=== PATIENT | male | born 1970 | race African-American/Black ===

== ENCOUNTER 2019-06-13 10:44 | Inpatient (IN) ==
[2019-06-13] MEDS ORDERED: NS 1,000 ML IV ONE (11:07)
[2019-06-13] MEDS ORDERED: ZOFRAN IV ONE (11:08)
[2019-06-13 11:29] LABS: BILIRUBIN URINE NEGATIVE (NEGATIVE); BLOOD URINE NEGATIVE (NEGATIVE); CLARITY CLEAR (CLEAR); COLOR YELLOW; KETONE URINE 3+(Large) mg/dL (NEGATIVE); LEUKOCYTES URINE NEGATIVE (NEGATIVE); NITRITE URINE NEGATIVE (NEGATIVE); PH URINE 6.5; PROTEIN URINE TRACE mg/dL (NEGATIVE); UROBILINOGEN URINE NORMAL
[2019-06-13 11:29] LABS: BE -17.8 mmoll (-3.0-3.0); BLOOD TYPE ARTERIAL; METHB 0.2 % (0.0-1.5); O2(CT) 18.6 mL/dL (15.0-23.0); O2HB 94.8 % (95.0-99.0); PCO2(98.6) 25 mmHg (35-45); PO2(98.6) 96 mmHg (60-100); SAMPLE BLOOD; SAO2 95.3 % (95.0-100.0); THB 13.9 g/dL (11.5-17.4)
[2019-06-13 11:34] LABS: ALLEN TEST YES; MODALITY ROOM AIR; pH(98.6) 7.17 (7.35-7.45)
[2019-06-13 11:36] LABS: URINE RBC <10 /HPF (<10); URINE SOURCE CLEAN CATCH
--- NOTE | 2019-06-13 11:36 | Diag Imaging Result Doc PS360 ---
EXAM: CHEST-PORTABLE INDICATION: SOB TECHNIQUE: 2 views COMPARISON: 04/15/2019 FINDINGS: The lungs are grossly clear. There is no discrete pleural fluid collection or pneumothorax. The cardiomediastinal silhouette and central vasculature are grossly unremarkable. IMPRESSION: No evidence of acute pathology by plain radiograph. Electronically signed by Candelario Rogers 06/13/2019 11:34 AM
[2019-06-13 11:44] LABS: UR AMPHETAMINES QUAL NONE DETECTED (NONE DETECT); UR BARBITUATES QUAL NONE DETECTED (NONE DETECT); UR BENZODIAZEPIN QUAL NONE DETECTED (NONE DETECT); UR CANNABINOIDS QUAL NONE DETECTED (NONE DETECT); UR COCAINE QUAL NONE DETECTED (NONE DETECT); UR METHADONE QUAL NONE DETECTED (NONE DETECT); UR METHAMPHETAMINE QUAL NONE DETECTED (NONE DETECT); UR OPIATES QUAL NONE DETECTED (NONE DETECT); UR OXYCODONE QUAL NONE DETECTED (NONE DETECT); UR PCP QUAL NONE DETECTED (NONE DETECT); UR PROPOXYPHENE QUAL NONE DETECTED (NONE DETECT); UR TCA QUAL NONE DETECTED (NONE DETECT)
[2019-06-13 12:28] LABS: BASO# 0.02 X1000 (0.0-0.2); BASO% 0.2 % (0.0-0.8); EOS# 0.02 X1000 (0.0-0.7); EOS% 0.2 % (0.0-10.0); HEMATOCRIT 43.1 % (42.0-52.0); IMM GRAN# 0.02 X1000 (0.0-0.04); IMM GRAN% 0.2 % (0.0-0.5); LYMPH% 5.4 % (20.5-51.1); MCH 30.4 PG (27-31); MCHC 32.5 g/dL (33-37); MCV 93.5 FL (81-99); MONO# 0.47 X1000 (0.11-0.59); MONO% 3.6 % (1.7-9.3); MPV 10.6 FL (7.4-10.4); NEUT# 11.74 X1000 (1.4-6.5); NEUT% 90.4 % (42.2-75.2); PLT 264 X1000 (130-400); RBC 4.61 XMIL (4.7-6.1); RDW 11.5 % (11.5-14.5); WBC 12.97 X1000 (4.8-10.8)
[2019-06-13 12:42] LABS: ALBUMIN 4.8 g/dL (3.5-5.0); CALCIUM 9.9 mg/dL (8.8-10.2); CREATININE 1.7 mg/dL (0.7-1.2); MAGNESIUM 2.1 mg/dL (1.5-2.7); TOTAL BILIRUBIN 0.5 mg/dL (0.20-1.00); TOTAL PROTEIN 8.2 g/dL (6.3-8.3)
[2019-06-13 12:46] LABS: POTASSIUM 6.5 mmol/L (3.5-5.1)
[2019-06-13] MEDS ORDERED: SODIUM PHOSPHATE 30 MMOL in D5W 250 ML IV PRN (12:49)
[2019-06-13] MEDS ORDERED: MAGNESIUM SULFATE 2 GM/S.W.I. 2 GM/50 ML IVPB IV PRN (12:49)
[2019-06-13] MEDS ORDERED: SODIUM BICARBONATE 8.4% 100 MEQ in STERILE WATER INJ. 500 ML IV PRN (12:49)
[2019-06-13] MEDS ORDERED: ZOFRAN IV PRN (12:49)
[2019-06-13] MEDS ORDERED: D50W SYRINGE IV PRN (12:49)
[2019-06-13] MEDS ORDERED: POTASSIUM CHLORIDE 20% LIQUID PO PRN (13:57)
[2019-06-13] MEDS ORDERED: TYLENOL PO PRN (13:57)
[2019-06-13] MEDS ORDERED: COMPAZINE IV PRN (13:57)
[2019-06-13] MEDS ORDERED: POTASSIUM CHLORIDE 40 MEQ in NS 250 ML IV PRN (13:57)
[2019-06-13] MEDS ORDERED: POTASSIUM CHLORIDE 20 MEQ/SWI 20 MEQ/100 ML IVPB IV PRN (13:57)
[2019-06-13] MEDS ORDERED: HUMULIN R 100 UNIT in NS 100 ML IV SCH ×4 (14:00)
[2019-06-13] MEDS: NS 1,000 ML IV SCH ×6 (14:11→22:39)
[2019-06-13 14:23] LABS: BE -20.4 mmoll (-3.0-3.0); BLOOD TYPE ARTERIAL; METHB 0.4 % (0.0-1.5); O2(CT) 17.3 mL/dL (15.0-23.0); PCO2(98.6) 22 mmHg (35-45); PO2(98.6) 100 mmHg (60-100); SAMPLE BLOOD; SAO2 95.6 % (95.0-100.0); THB 12.9 g/dL (11.5-17.4)
[2019-06-13 14:38] LABS: pH(98.6) 7.12 (7.35-7.45)
[2019-06-13] MEDS ORDERED: SODIUM BICARBONATE 8.4% IV PUSH ONE (14:38)
[2019-06-13 14:39] LABS: ALLEN TEST YES; MODALITY ROOM AIR
[2019-06-13 14:51] LABS: HEMOGLOBIN A1C 9.5 % (4.8-6.0)
[2019-06-13 14:54] LABS: ACETONE SERUM SMALL (NEGATIVE)
[2019-06-13 15:04] LABS: AMYLASE 43 U/L (20-200); LIPASE 10 U/L (13-60)
--- NOTE | 2019-06-13 15:19 | HISTORY AND PHYSICAL ---
PRIMARY CARE PROVIDER: Juan Carlos Smalls MD. CHIEF COMPLAINT: Chest pain across both arms with nausea and vomiting and his blood glucose showing over 500. HISTORY OF PRESENT ILLNESS: Mr. Drew Murcia is a 49-year-old male with a medical history of diabetes mellitus type 1 with several episodes of DKA, also with history of hypertension, presented to [facility] ER with complaints of yesterday evening having some chest pressure across both arms, nausea with some vomiting, and had his sugars checked showing over 500. Apparently he tends to drink sugary Powerades while he is at work. He denies any fever or chills. Lab work revealed that he had a blood glucose level that was greater than 800, a pH of 7.17, lactate was 4.9. His potassium was 6.5 and anion gap of 34 and some acute kidney injury. So he will be admitted to the ICU over at [facility]. PAST MEDICAL HISTORY: 1. Diabetes mellitus type 1. 2. Frequent DKA. 3. Hypertension. PAST SURGICAL HISTORY: Left foot surgery. SOCIAL HISTORY: Lives with his . Denies tobacco, alcohol, or illicit drug use. FAMILY HISTORY: He denies. ALLERGIES: No known drug allergies. HOME MEDICATIONS: Not yet reconciled but it shows 70/30 8 units subcutaneous twice a day and Lantus 20 units subcutaneous at bedtime. REVIEW OF SYSTEMS: Fourteen point review of systems are complete and all were negative except for those mentioned above in HPI. PHYSICAL EXAMINATION: VITAL SIGNS: Temperature 98.4 degrees, heart rate 113, respiratory rate 20, blood pressure 148/66, O2 saturation 98% on room air. He is 6 feet 4 inches tall, 230 pounds, BMI of 28. GENERAL: Mr. Drew Murcia is a 49-year-old male. He is in no acute distress. He is able answer questions appropriately. He is drowsy. HEENT: Atraumatic, normocephalic. Pupils equal, round, reactive to light. Extraocular movements intact. Mucous membranes are dry. NECK: Trachea midline. CARDIOVASCULAR: S1, S2. Tachycardic rate and rhythm. No rubs, gallops, murmurs. No lower extremity edema. There are +2 dorsalis and radial pulses. Negative JVD or carotid bruits. PULMONARY: Clear to auscultate. Bilateral breath sounds. No accessory muscle use or work of breathing noted. GI: Soft, nontender, nondistended. Positive bowel sounds x4. EXTREMITIES: Moves all extremities equally. Full range of motion. NEUROLOGIC: A O x3. Follows commands. Sensory is intact. SKIN: Warm, dry, intact. LABORATORY DATA: White blood cells 12,000, hemoglobin 14, hematocrit 43, platelet count 264,000. ABGs on room air, pH 7.17, pCO2 25, PO2 96, bicarb 11, base excess is -17, saturation 94%, lactate 4.9. Sodium 130, potassium 6.5, BUN 24, creatinine is 1.7, glucose 832, calcium 9.9, magnesium 2.1, bilirubin 0.50, AST 28, ALT 25. Troponin less than 0.01. ProBNP 120. Albumin 4.8. Serum lactate 5.2. Urinalysis: Trace protein, 3+ ketones, 3+ glucose. Urine drug screen negative. IMAGING: Chest x-ray: No acute findings. ASSESSMENT AND PLAN: 1. Diabetic ketoacidosis with type 1 diabetes mellitus. Apparently, he may be noncompliant at home. He had symptoms yesterday that started. He will be put on a DKA protocol. Here with frequent electrolyte checks and ABGs. He will be monitored in the ICU and will be given aggressive IV fluid hydration. 2. Acute kidney injury secondary to dehydration, likely related to diabetic ketoacidosis. Again, will give IV fluid hydration. Will recheck labs in the morning. 3. Lactic acidosis secondary to diabetic ketoacidosis. Getting IV fluids. 4. Leukocytosis. Likely inflammatory or reactive but will go ahead and get blood cultures. We will get a urinalysis. Chest x-ray shows no pneumonia. Should improve with IV fluid hydration. He is afebrile. 5. Hyperkalemia. This is secondary to the DKA. Will get an EKG. 6. Deep venous thrombosis prophylaxis. SCDs. Dictated by ARLET Landin for Cody Kinney MD Addendum: Patient seen and examined by myself. Agree with ARLET note. It reflects my assessment and plan. Patient is being admitted to hospital for DKA. He is going to be started on insulin drip, will also check BMP q4hrs and check creatinine for GARFIELD. Will monitor patient closely. cc: ARLET Landin MD MTDD
[2019-06-13 15:25] LABS: CK PROFILE 257 U/L (24-204)
[2019-06-13 15:28] LABS: CREATININE 1.7 mg/dL (0.7-1.2); POTASSIUM 7.6 mmol/L (3.5-5.1)
[2019-06-13] MEDS ORDERED: HUMULIN R (PARKWAY) ONE (15:31)
[2019-06-13] MEDS ORDERED: HUMULIN R IV ONE (15:33)
[2019-06-13] MEDS ORDERED: CALCIUM GLUCONATE 1 GM in NS 50 ML IV ONE (15:34)
[2019-06-13 15:53] LABS: CK INDEX 2.3 (0.0-2.5); CK-MB 5.97 ng/mL (0.0-5.0)
[2019-06-13 17:31] LABS: CALCIUM 8.3 mg/dL (8.8-10.2); CREATININE 1.8 mg/dL (0.7-1.2); PHOSPHORUS 4.6 mg/dL (2.7-4.5); POTASSIUM 4.4 mmol/L (3.5-5.1)
[2019-06-13] MEDS: POTASSIUM CHLORIDE 10% LIQUID PO PRN (17:54)
[2019-06-13 18:17] LABS: BLOOD TYPE ARTERIAL; HCO3-(ACT) 14.7 mmoll (20.0-26.0); METHB 0.6 % (0.0-1.5); O2(CT) 16.3 mL/dL (15.0-23.0); O2HB 95.1 % (95.0-99.0); PCO2(98.6) 28 mmHg (35-45); PO2(98.6) 95 mmHg (60-100); SAMPLE BLOOD; SAO2 95.7 % (95.0-100.0); THB 12.1 g/dL (11.5-17.4); pH(98.6) 7.26 (7.35-7.45)
[2019-06-13 18:22] LABS: MODALITY ROOM AIR
[2019-06-13 18:23] LABS: ALLEN TEST NO
[2019-06-13 18:41] LABS: BILIRUBIN URINE NEGATIVE (NEGATIVE); BLOOD URINE NEGATIVE (NEGATIVE); CLARITY CLEAR (CLEAR); COLOR YELLOW; KETONE URINE 3+(Large) mg/dL (NEGATIVE); LEUKOCYTES URINE NEGATIVE (NEGATIVE); NITRITE URINE NEGATIVE (NEGATIVE); PROTEIN URINE NEGATIVE (NEGATIVE); SP GRAVITY URINE 1.015; UROBILINOGEN URINE NORMAL
[2019-06-13 18:44] LABS: URINE BACTERIA 1+ /HFP; URINE CAST NONE SEEN /LPF; URINE CRYSTAL NONE SEEN /HPF; URINE EPITHELIAL CELLS <10 /HPF (<10); URINE SOURCE CLEAN CATCH; URINE YEAST NONE SEEN /HPF
[2019-06-13 18:54] LABS: UR AMPHETAMINES QUAL NONE DETECTED (NONE DETECT); UR BARBITUATES QUAL NONE DETECTED (NONE DETECT); UR BENZODIAZEPIN QUAL NONE DETECTED (NONE DETECT); UR CANNABINOIDS QUAL NONE DETECTED (NONE DETECT); UR COCAINE QUAL NONE DETECTED (NONE DETECT); UR METHADONE QUAL NONE DETECTED (NONE DETECT); UR METHAMPHETAMINE QUAL NONE DETECTED (NONE DETECT); UR OPIATES QUAL NONE DETECTED (NONE DETECT); UR OXYCODONE QUAL NONE DETECTED (NONE DETECT); UR PCP QUAL NONE DETECTED (NONE DETECT); UR PROPOXYPHENE QUAL NONE DETECTED (NONE DETECT); UR TCA QUAL NONE DETECTED (NONE DETECT)
[2019-06-13 21:45] LABS: CALCIUM 8.4 mg/dL (8.8-10.2); CREATININE 1.6 mg/dL (0.7-1.2); PHOSPHORUS 1.6 mg/dL (2.7-4.5); POTASSIUM 4.4 mmol/L (3.5-5.1)
[2019-06-13] MEDS: D5 NS 1,000 ML IV PRN (22:38)
[2019-06-14 00:11] LABS: ALLEN TEST YES; BE 1.3 mmoll (-3.0-3.0); BLOOD TYPE ARTERIAL; HCO3-(ACT) 25.9 mmoll (20.0-26.0); METHB 0.1 % (0.0-1.5); O2(CT) 16.1 mL/dL (15.0-23.0); O2HB 95.7 % (95.0-99.0); PCO2(98.6) 40 mmHg (35-45); PO2(98.6) 87 mmHg (60-100); SAMPLE BLOOD; SAO2 95.8 % (95.0-100.0); THB 11.9 g/dL (11.5-17.4); pH(98.6) 7.42 (7.35-7.45)
[2019-06-14 00:12] LABS: MODALITY ROOM AIR
[2019-06-14 01:55] LABS: AGAP 13; BUN 16 mg/dL (8-22); CALCIUM 8.5 mg/dL (8.8-10.2); CHLORIDE 109 mmol/L (98-107); COSMO 289; CREATININE 1.2 mg/dL (0.7-1.2); ESTIMATED GFR > 60; GLUCOSE 116 mg/dL (70-104); PHOSPHORUS 1.8 mg/dL (2.7-4.5); SODIUM 144 mmol/L (136-145); TCO2 22 mmol/L (25-35)
[2019-06-14 06:25] LABS: HEMATOCRIT 35.9 % (42.0-52.0); RDW 11.7 % (11.5-14.5)
[2019-06-14 07:04] LABS: AGAP 17; AGAP 18; ALB/GLOB RATIO 1.3; ALBUMIN 3.5 g/dL (3.5-5.0); ALKALINE PHOSPHATASE 83 U/L (32-122); BUN 16 mg/dL (8-22); CALCIUM 8.1 mg/dL (8.8-10.2); CALCIUM 8.2 mg/dL (8.8-10.2); CHLORIDE 105 mmol/L (98-107); COSMO 295; COSMO 297; CREATININE 1.2 mg/dL (0.7-1.2); CREATININE 1.3 mg/dL (0.7-1.2); ESTIMATED GFR > 60; GLUCOSE 294 mg/dL (70-104); GLUCOSE 295 mg/dL (70-104); GOT 18 U/L (10-34); GPT 17 U/L (10-44); PHOSPHORUS 2.6 mg/dL (2.7-4.5); POTASSIUM 4.4 mmol/L (3.5-5.1); POTASSIUM 4.5 mmol/L (3.5-5.1); SODIUM 142 mmol/L (136-145); SODIUM 143 mmol/L (136-145); TCO2 20 mmol/L (25-35); TOTAL BILIRUBIN 0.36 mg/dL (0.20-1.00); TOTAL PROTEIN 6.1 g/dL (6.3-8.3)
[2019-06-14] MEDS: NS 1,000 ML IV SCH ×3 (07:12→22:46)
[2019-06-14 07:15] LABS: HEMOGLOBIN 12.3 g/dL (14.0-18.0); MCH 31.6 PG (27-31); MCHC 34.3 g/dL (33-37); MCV 92.3 FL (81-99); MPV 10.1 FL (7.4-10.4); RBC 3.89 XMIL (4.7-6.1); WBC 10.79 X1000 (4.8-10.8)
[2019-06-14] MEDS: POTASSIUM CHLORIDE 10% LIQUID PO PRN ×2 (08:44→16:37)
[2019-06-14 09:39] LABS: AGAP 19; BUN 16 mg/dL (8-22); CALCIUM 7.9 mg/dL (8.8-10.2); CHLORIDE 103 mmol/L (98-107); COSMO 287; CREATININE 1.4 mg/dL (0.7-1.2); ESTIMATED GFR > 60; GLUCOSE 323 mg/dL (70-104); POTASSIUM 4.3 mmol/L (3.5-5.1); SODIUM 137 mmol/L (136-145); TCO2 15 mmol/L (25-35)
[2019-06-14] MEDS: TESSALON PO PRN (11:39)
[2019-06-14 14:08] LABS: AGAP 13; BUN 12 mg/dL (8-22); CALCIUM 7.9 mg/dL (8.8-10.2); CHLORIDE 105 mmol/L (98-107); COSMO 283; CREATININE 1.2 mg/dL (0.7-1.2); ESTIMATED GFR > 60; GLUCOSE 196 mg/dL (70-104); PHOSPHORUS 1.2 mg/dL (2.7-4.5); POTASSIUM 3.8 mmol/L (3.5-5.1); SODIUM 139 mmol/L (136-145); TCO2 21 mmol/L (25-35)
[2019-06-14] MEDS ORDERED: TAMIFLU PO SCH (14:45)
--- NOTE | 2019-06-14 15:05 | PROGRESS NOTE ---
DATE: 06/14/2019 INTERVAL HISTORY: The patient remains on insulin drip. Still some nausea and not taking very much by mouth, but no further vomiting. Afebrile overnight. No other acute events. No new complaints. REVIEW OF SYSTEMS: Twelve point review of systems negative except as per interval history. LABORATORY: WBC 10.7, hemoglobin 12.3, hematocrit 35.9, and platelets 229,000. ABG with pH 7.42, pCO2 40, and PO2 87 on room air. Sodium 137, potassium 4.3 Initial bicarb 15, and repeat 21. Initial creatinine 1.4. Repeat 1.2. Glucose 179 to 323. VITALS: T-max 98.4 degrees, pulse 97, respirations 18, blood pressure 126/84, and O2 saturation 100% on room air. PHYSICAL EXAMINATION: General: Ill-appearing, but in no acute distress. Vitals: As above. HEENT: Normocephalic, atraumatic. Dry mucous membranes. No cervical adenopathy. Cardiovascular: Minimally tachycardic, but regular. No murmurs noted. Pulmonary: Clear to auscultation bilaterally. Abdomen: Soft, nontender, and nondistended. Bowel sounds positive. Extremities: Peripheral pulses intact. No clubbing, cyanosis, or edema. Neurologic: Cranial nerves grossly intact. Mild global weakness but, no focal deficits identified. Psychiatric: Normal mood and affect. Awake, alert, and oriented x3. Skin: No new rashes or lesions identified. ASSESSMENT AND PLAN: 1. DKA. Remains on insulin drip. He was essentially resolved in the lead radiation therapist hours, but repeat later this morning showed that his bicarb had worsened again, and his gap was trying to open back up. I further adjusted fluids and insulin drip, and now improving again. Given worsening this morning even with insulin drip and fluids, and very limited p.o. intake, we will likely leave him on insulin drip for today. If his labs continue to look good, then we will hopefully be able to transition to subcutaneous insulin in the morning. Suspect viral gastroenteritis as the underlying cause of his issues. 2. Nausea and vomiting, likely viral gastroenteritis. The patient with nausea and vomiting prior to admission. Still some nausea, but no further vomiting with antiemetics. Continue symptomatic treatment, fluids and monitor. 3. Acute kidney injury. Creatinine 1.6 on admission, and came down to 1.2 with slight bump this morning to 1.4, but coming down again now. Baseline appears to be essentially normal with 0.9 to 1. Continue fluids as above and monitor. 4. Hyperkalemia resolved with treatment of DKA. 5. Lactic acidosis, improving on last check. Continue trending fluids as above. 6. Flu-like illness. The patient reports that his significant other was diagnosed with the flu, and a few days later he became sick. Reports initial symptoms approximately 48 hours ago. We will check flu swab, but go ahead and start Tamiflu in the meantime as he appears to be right on the edge of the 48 hour mary. Minimal respiratory symptoms. Suspect this may be some other virus. If flu swab negative, we will discontinue Tamiflu. addendum: significant other came up and denies any diagnosis of flu. she states that she has only had bronchitis. will still flu swab him but lower suspicion for influenza now so we will hold off on tamiflu. [facility]ITAL[facility]
[2019-06-14] MEDS: D5 NS 1,000 ML IV PRN (16:22)
[2019-06-14 17:57] LABS: AGAP 11; BUN 10 mg/dL (8-22); CALCIUM 7.8 mg/dL (8.8-10.2); CHLORIDE 104 mmol/L (98-107); COSMO 280; CREATININE 1.1 mg/dL (0.7-1.2); ESTIMATED GFR > 60; GLUCOSE 191 mg/dL (70-104); POTASSIUM 4.1 mmol/L (3.5-5.1); SODIUM 138 mmol/L (136-145); TCO2 23 mmol/L (25-35)
[2019-06-14 18:14] LABS: PHOSPHORUS 0.9 mg/dL (2.7-4.5)
[2019-06-15] MEDS: D5 NS 1,000 ML IV PRN ×2 (00:35→07:06)
[2019-06-15 02:16] LABS: AGAP 13; BUN 8 mg/dL (8-22); CALCIUM 7.7 mg/dL (8.8-10.2); CHLORIDE 106 mmol/L (98-107); COSMO 283; CREATININE 1.1 mg/dL (0.7-1.2); ESTIMATED GFR > 60; GLUCOSE 200 mg/dL (70-104); PHOSPHORUS 2.3 mg/dL (2.7-4.5); POTASSIUM 3.7 mmol/L (3.5-5.1); SODIUM 140 mmol/L (136-145); TCO2 21 mmol/L (25-35)
[2019-06-15] MEDS: POTASSIUM CHLORIDE 10% LIQUID PO PRN (02:25)
[2019-06-15 05:01] LABS: ALLEN TEST YES; BLOOD TYPE ARTERIAL; HCO3-(ACT) 24.9 mmoll (20.0-26.0); METHB 0.3 % (0.0-1.5); O2(CT) 16.1 mL/dL (15.0-23.0); O2HB 95.6 % (95.0-99.0); PCO2(98.6) 40 mmHg (35-45); PO2(98.6) 104 mmHg (60-100); SAMPLE BLOOD; SAO2 95.9 % (95.0-100.0); THB 11.9 g/dL (11.5-17.4)
[2019-06-15 05:02] LABS: MODALITY ROOM AIR
[2019-06-15] MEDS: NS 1,000 ML IV SCH ×2 (05:43→09:35)
[2019-06-15 07:13] LABS: AGAP 11; BUN 8 mg/dL (8-22); CALCIUM 7.2 mg/dL (8.8-10.2); CHLORIDE 106 mmol/L (98-107); COSMO 281; ESTIMATED GFR > 60; GLUCOSE 155 mg/dL (70-104); POTASSIUM 3.5 mmol/L (3.5-5.1); SODIUM 140 mmol/L (136-145); TCO2 23 mmol/L (25-35)
[2019-06-15] MEDS: LANTUS INSULIN SUBQ SCH (08:39)
[2019-06-15] MEDS: TESSALON PO PRN ×2 (09:34→17:52)
[2019-06-15] MEDS ORDERED: NS 1,000 ML IV SCH (10:26)
[2019-06-15] MEDS: HUMALOG SUBQ SCH ×3 (11:15→21:33)
[2019-06-15 13:01] LABS: AGAP 14; BUN 7 mg/dL (8-22); CALCIUM 7.3 mg/dL (8.8-10.2); CHLORIDE 105 mmol/L (98-107); COSMO 284; CREATININE 1.1 mg/dL (0.7-1.2); ESTIMATED GFR > 60; GLUCOSE 190 mg/dL (70-104); POTASSIUM 3.8 mmol/L (3.5-5.1); SODIUM 141 mmol/L (136-145); TCO2 22 mmol/L (25-35)
--- NOTE | 2019-06-15 13:30 | PROGRESS NOTE ---
DATE: 06/15/2019 INTERVAL HISTORY: The patient's nausea and vomiting has entirely resolved. Still some nonproductive cough, but no significant dyspnea. Afebrile overnight. REVIEW OF SYSTEMS: Twelve point review of systems negative except as per interval history. LABS: ABG with pH 7.4, pCO2 40, pO2 104 on room air. Sodium 140, potassium 3.5, chloride 106, bicarbonate 23, BUN 8, creatinine 1, glucose 134 to 155. VITALS: T-max 99.1 degrees, pulse 82, respirations 21, blood pressure 153/98, O2 saturation 99% on room air. PHYSICAL EXAMINATION: General: No acute distress. Vitals: As above. HEENT: Normocephalic, atraumatic. Moist mucous membranes. Neck: No cervical adenopathy. Cardiovascular: Regular rate and rhythm. No murmurs noted. Pulmonary: Clear to auscultation bilaterally. Abdomen: Soft, nontender, nondistended. Bowel sounds positive. Extremities: Peripheral pulses intact. No clubbing, cyanosis, or edema. Neurologic: Cranial nerves grossly intact. No focal deficits identified. Psychiatric: Normal mood and affect. Awake, alert, and oriented x3. Skin: No new rashes or lesions seen. ASSESSMENT AND PLAN: 1. DKA. Gap now closed, pH normal on last ABG. We will go ahead and transition to subcu Lantus and sliding scale insulin and monitor. We will move out to a regular room. We will advance diet. If his gap remains closed and he otherwise does well on subcu insulin, then we will hopefully be able to discharge tomorrow. 2. Nausea and vomiting, likely viral illness, now resolved, advancing diet as above and monitor. 3. Acute kidney injury. Creatinine 1.6 on admission, now essentially normal. Continue fluids 1 more day. 4. Hyperkalemia, resolved with treatment of DKA. 5. Lactic acidosis, improved. 6. Viral illness. Patient with mild, nonproductive cough. No evidence of pneumonia on chest x- ray. Appears to be improving.
[2019-06-16] MEDS: NS 1,000 ML IV SCH (04:43)
[2019-06-16 06:33] LABS: BASO# 0.01 X1000 (0.0-0.2); BASO% 0.2 % (0.0-0.8); EOS# 0.17 X1000 (0.0-0.7); EOS% 3.7 % (0.0-10.0); HEMATOCRIT 35.6 % (42.0-52.0); LYMPH# 1.44 X1000 (1.2-3.4); LYMPH% 31.7 % (20.5-51.1); MCHC 33.7 g/dL (33-37); MONO# 0.27 X1000 (0.11-0.59); MONO% 5.9 % (1.7-9.3); MPV 9.8 FL (7.4-10.4); NEUT# 2.65 X1000 (1.4-6.5); NEUT% 58.5 % (42.2-75.2); PLT 166 X1000 (130-400); RBC 3.87 XMIL (4.7-6.1); RDW 11.2 % (11.5-14.5); WBC 4.54 X1000 (4.8-10.8)
[2019-06-16] MEDS: HUMALOG SUBQ SCH (06:51)
[2019-06-16 07:20] LABS: AGAP 10; BUN 8 mg/dL (8-22); CALCIUM 7.7 mg/dL (8.8-10.2); CHLORIDE 102 mmol/L (98-107); COSMO 277; CREATININE 0.8 mg/dL (0.7-1.2); ESTIMATED GFR > 60; GLUCOSE 194 mg/dL (70-104); POTASSIUM 3.7 mmol/L (3.5-5.1); SODIUM 137 mmol/L (136-145); TCO2 25 mmol/L (25-35)
[2019-06-16 07:57] VITALS: BP 140/89
[2019-06-16] MEDS: TESSALON PO PRN (09:29)
[2019-06-16] MEDS: LANTUS INSULIN SUBQ SCH (09:30)
--- NOTE | 2019-06-16 15:43 | DISCHARGE SUMMARY ---
ADMISSION DATE: 06/13/2019 DISCHARGE DATE: 06/16/2019 PRIMARY CARE PHYSICIAN: Dr. Juan Carlos Smalls. ADMISSION DIAGNOSES: 1. Diabetic ketoacidosis with type 1 diabetes. 2. Acute kidney injury secondary to dehydration, likely related to diabetic ketoacidosis. 3. Lactic acid secondary to diabetic ketoacidosis. 4. Leukocytosis likely inflammatory or reactive. 5. Hypokalemia secondary to diabetic ketoacidosis. DISCHARGE DIAGNOSIS: 1. Diabetic ketoacidosis resolved. 2. Nausea, vomiting with likely viral illness, now resolved. 3. Acute kidney injury resolved. 4. Hyperkalemia now resolved with resolution of diabetic ketoacidosis. 5. Lactic acidosis resolved. 6. Viral illness. SUMMARY OF FINDINGS: This is a 49-year-old male who presented to the ER with complaint of chest pressure across both arms, nausea with some vomiting, checked his sugar, it was above 500. He apparently drinks sugary Powerades while he is at work. His blood glucose level was greater than 800 on arrival, pH of 7.17, lactate 4.9, potassium was 6.5, anion gap of 34, some acute kidney injury so was admitted to the intensive care unit and placed on our DKA protocol, given IV hydration per the protocol. He has had a viral illness as well with some nausea, vomiting after resolution of the DKA. No evidence of pneumonia on chest x-ray. Has a mild nonproductive cough but appears to be improving. He is tolerating a diabetic diet. Blood sugars are now at 194 this morning, he was noted to have a hemoglobin A1c of 9.5 on admission and so it is now felt that he can safely be discharged home. DISCHARGE MEDICATIONS: Lantus 25 units subcu at bedtime and Humalog 25 units subcu b.i.d. 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 Of course we encouraged him again as we do every time he is here in the hospital with DKA to not drink the sugary Powerade drinks that he is drinking at work that he needs to consume water for his hydration when at all possible. He verbalizes understanding. TIME SPENT: 35 minutes. Dictated by ARLET Jimenez for Chandler Heck MD cc: Juan Carlos Smalls MD
--- NOTE | 2019-06-17 18:30 | PROVIDER DOCUMENTATION ---
This chart was entered by Jami Gonzalez Scribe, acting as scribe for Luis Mireles MD. HPI-General Adult - General Chief Complaint: DKA ALERT Stated Complaint: Flu Symptoms Time Seen by Provider: 06/13/19 10:49 Source: patient Allergies/Adverse Reactions: Patient Allergies Allergy/AdvReac Type Severity Reaction Status Date / Time No Known Allergies Allergy Verified 07/07/18 00:59 Home Medications: Home Medication List Medication Instructions Recorded Confirmed Last Taken Type Insulin Glargine [Lantus Insulin] 25 unit SUBQ HS 06/14/19 06/14/19 Unknown History Insulin Lispro [Humalog] 25 units SUBQ BID AC #0 06/16/19 06/14/19 Unknown Rx - History of Present Illness -Gen Adult Nature of Presenting Problems: Patient is a 49 year old male who presents to the ED via EMS with elevated blood sugar. States generalized body aches, nausea, vomiting, diarrhea, increased thirst and polyuria. Denies fever. Reports blood sugar was greater than 500 this morning. Location of Pain/Injury: reports: generalized Pain Radiation: reports: no radiation Quality of Pain: reports: aching Severity: reports: mild Timing: reports: still present Context/Activities at Onset: reports: light activity Associated Symptoms: reports: diarrhea, nausea, vomiting, other (increased thirst and polyuria) Similar Symptoms Previously?: Yes Recently seen or treated by another doctor?: Yes - Diabetes Related Context Context: reports: high blood sugar Review of Systems - Adult - REVIEW OF SYSTEMS - ADULT Constitutional: reports: no symptoms reported. denies: chills, fever, fatique Eyes: reports: no symptoms reported Ears, Nose, Mouth & Throat: reports: no symptoms reported Cardiovascular: reports: no symptoms reported Respiratory: reports: no symptoms reported Gastrointestinal: reports: see HPI, diarrhea, nausea, vomiting. denies: abdominal pain Genitourinary: reports: no symptoms reported Musculoskeletal: reports: see HPI, muscle aches. denies: back pain, neck pain Integumentary: reports: no symptoms reported Neurological: reports: no symptoms reported Psychiatric: reports: no symptoms reported Endocrine: reports: see HPI, increased thirst, polyuria. denies: excessive sweating Hematologic/Lymphatic: reports: no symptoms reported Allergic/Immunologic: reports: no symptoms reported All Other Systems: Reviewed and Negative Past History - Adult - PAST MEDICAL HISTORY-ADULT Review of Records: reports: Old Records Reviewed, Social history reviewed & non- contributory. Major Childhood Illnesses: reports: denies history Cardiovascular: reports: HTN Respiratory: reports: denies history Gastrointestinal: reports: denies history Obstetrical/Gynecological: reports: denies history Genitourinary: reports: denies history Musculoskeletal: reports: denies history Neurological: reports: denies history Endocrine/Immune: reports: Diabetes Other Conditions: reports: denies history - PRIOR SURGERIES/PROCEDURES Surgical/Procedure History: reports: none - IMMUNIZATION STATUS Childhood Immunizations: See Nurse Assessment Flu Vaccine: See Nurse Assessment - FAMILY HISTORY Family History: reviewed, not pertinent - SOCIAL HISTORY Smoking: denies Substance Use: denies Physical Exam-General - PHYSICAL EXAM-ADULT Initial Vital Signs Reviewed: Yes - CONSTITUTIONAL General Appearance: alert, no apparent distress. negative: lethargic - HEAD, EARS, NOSE, MOUTH & THROAT HENMT: normocephalic/atraumatic, moist mucous membranes. negative: angioedema - RESPIRATORY Respiratory: chest non-tender, lungs clear, normal breath sounds. negative: crackles, stridor - CARDIOVASCULAR Cardiovascular: normal peripheral pulses, tachycardia. negative: systolic murmur - GASTROINTESTINAL (ABDOMEN) Abdominal Exam: normal bowel sounds, non tender, soft. negative: rigid - MUSCULOSKELETAL Extremity: non-tender, pedal edema (bilateral). negative: deformity, erythema - SKIN Integumentary: normal color, normal turgor, warm/dry. negative: diaphoresis, ecchymosis, jaundice - NEUROLOGIC Neurologic: grossly normal. negative: aphasia, facial droop - PSYCHIATRIC Psych/Mental Status: normal mood/affect, oriented x 3. negative: anxious Progress - PLAN OF CARE/RESULTS Progress/Plan/Lab Results: Vital Signs - 8 hr 06/13/19 10:41 Temperature 98.4 F Pulse Rate 113 H Respiratory Rate 20 Blood Pressure 148/66 O2 Sat by Pulse Oximetry 98 Result Diagrams: 06/16/19 06:07 06/16/19 06:07 - REASSESSMENT Reassessment #2 Time Reassessed: 13:37 Status: improving (SIGNIFICANT DKA,ACIDOSIS, LEUKOCYTOSIS,HI K+, LOW Na, CXR AND U/A CLEAR. TRANSITION OF CARE TO HOSPITALIST DISCUSSED W/ DR LEAVITT.) Reassessment #3 Time Reassessed: 15:31 Status: improving (JUST GOT A CRITICAL LAB: K+NOW 7.62 AND BS IS 898, PT ACTUAL LY FEELING SOME BETTER, HR IS 110. ORDERING INSULIN BOLUS 20u AND Ca GLUCONATE TO HELP STABLIZE CARDIAC MEMBRANE. THESE DISCUSSED WITH DARIEL QUEEN ON [facility].) - XRAY 1 XRAY Study: Chest Impression: See EMR Report ( EXAM: CHEST-PORTABLE INDICATION: SOB TECHNIQUE: 2 views COMPARISON: 04/15/2019 FINDINGS: The lungs are grossly clear. There is no discrete pleural fluid collection or pneumothorax. The cardio mediastinal silhouette and central vasculature are grossly unremarkable. IMPRESSION: No evidence of acute pathology by plain radiograph. Electronically signed by Candelario Rogers 06/13/2019 11:34 AM 06/13/19 1134 Interpreting Physician: Candelario Rogers MD Dictated Date/Time: 06/13/19 1133 cc: Luis Mireles MD; None,PCP) - CONSULTS/PCP/HOSPITALIST Notification #1 *Consult/PCP/Hospitalist*: Dr. Leavitt Time Discussed: 11:47 (NEED FOR ICU ADMIT DISCUSSED) Reason/Comments: Dr. Mireles consulted with Dr. Leavitt about patient. Departure - Departure Date of Disposition Decision: 06/13/19 Time of Disposition Decision: 13:39 DIAGNOSIS: DKA (diabetic ketoacidoses), Nausea and vomiting, Lactic acidosis, Dehydration, Hyperkalemia, Hyponatremia Disposition: ADMITTED INPATIENT 09 Certified Medical Emergency: Emergent Condition: Fair - Critical Care Note This patient required my direct & personal management of CC.: Yes Total Time (mins): 35 Critical Care Statement: This patient required my direct personal management to treat or rule out processes, the absence of which, could potentiallly result in sudden, clinically significant life or limb threatening deterioration. Attestation - Physician/ RIYA Attestation Patient care was provided by Advanced Practice Provider:: No The physician spent face to face time with patient:: Yes Advanced Practice Provider documentation review:: Supervising physician onsite and consulted in the evaluation and care of this patient. The physician did have a face to face encounter with the patient. This chart was documented by the indicated scribe, (Jami Gonzalez Scribe) and accurately reflects the services I performed and decisions made by me, Luis Mireles MD, as attested by the provider's signature.
== END 2019-06-16 14:18 | disposition home or self-care (01) | DRG 638 ==
LOC: P.ED 10:44 → ICU 18:50 → SUATTDRO 18:50 → 3N 06-15 13:21
PROVIDERS: ATTEND Internal Medicine

== ENCOUNTER 2019-06-29 18:23 | Inpatient (IN) ==
[2019-06-29] MEDS ORDERED: NS 1,000 ML IV ONE ×2 (18:41→19:49)
[2019-06-29] MEDS ORDERED: HUMULIN R IV ONE ×2 (18:43→20:18)
--- NOTE | 2019-06-29 18:52 | PROVIDER DOCUMENTATION ---
HPI-Abdominal Pain/GI Problem - General Chief Complaint: DKA ALERT Stated Complaint: NAUSEATED Time Seen by Provider: 06/29/19 18:50 Source: patient Allergies/Adverse Reactions: Patient Allergies Allergy/AdvReac Type Severity Reaction Status Date / Time No Known Allergies Allergy Verified 06/29/19 19:10 Home Medications: Home Medication List Medication Instructions Recorded Confirmed Last Taken Type Insulin Lispro [Humalog] 20 units SUBQ TID 06/29/19 06/29/19 Unknown History - History of Present Illness-ABD Nature of Presenting Problems: 49 yr old M with type 1 DM, presents with elevated glucose over 500. Pt's blood glucose was noted to be high this morning in the 200s after his insulin regimen (he is on 20 units AC) - his rechecked it some minutes before arrival and it was found to be 556. Pt notes that he has had increased urination over the past 24-48 hrs. The patient denies any chest, or abdominal pain, has not had nausea or vomiting or diarrhea. Quality of Pain: reports: none Onset/Duration: reports: 4-6 hours ago Review of Systems - Adult - REVIEW OF SYSTEMS - ADULT Constitutional: reports: no symptoms reported Eyes: reports: no symptoms reported Ears, Nose, Mouth & Throat: reports: no symptoms reported Cardiovascular: reports: no symptoms reported Respiratory: reports: no symptoms reported Gastrointestinal: reports: no symptoms reported Genitourinary: reports: frequency Neurological: reports: no symptoms reported Past History - Adult - PAST MEDICAL HISTORY-ADULT Review of Records: reports: Nursing Assessment Review Major Childhood Illnesses: reports: denies history Cardiovascular: reports: HTN Respiratory: reports: denies history Gastrointestinal: reports: denies history Obstetrical/Gynecological: reports: denies history Genitourinary: reports: denies history Musculoskeletal: reports: denies history Neurological: reports: denies history Endocrine/Immune: reports: Diabetes Other Conditions: reports: denies history - PRIOR SURGERIES/PROCEDURES Surgical/Procedure History: reports: none - IMMUNIZATION STATUS Childhood Immunizations: See Nurse Assessment Flu Vaccine: See Nurse Assessment - FAMILY HISTORY Family History: reviewed, not pertinent Physical Exam-General - PHYSICAL EXAM-ADULT Initial Vital Signs Reviewed: Yes - CONSTITUTIONAL General Appearance: appears well, alert, no apparent distress - EYES Eyes: PERRL/EOMI - HEAD, EARS, NOSE, MOUTH & THROAT HENMT: normocephalic/atraumatic, moist mucous membranes - RESPIRATORY Respiratory: lungs clear, normal breath sounds - CARDIOVASCULAR Cardiovascular: regular rate, rhythm - GASTROINTESTINAL (ABDOMEN) Abdominal Exam: normal bowel sounds, non tender, soft - SKIN Integumentary: warm/dry - PSYCHIATRIC Psych/Mental Status: normal mood/affect, oriented x 3 Progress - PLAN OF CARE/RESULTS Progress/Plan/Lab Results: Vital Signs - 8 hr 06/29/19 18:31 Temperature 97.5 F L Pulse Rate 125 H Respiratory Rate 19 Blood Pressure 154/94 O2 Sat by Pulse Oximetry 96 Laboratory Results - last 24 hr 06/29/19 18:37 POC Glucose 488 H D Orders Category Date Time Status ABG [RESP] Routine Lab 06/29/19 18:41 Ordered CBC WITH DIFF [HEME] Stat Lab 06/29/19 18:47 Ordered COMPREHENSIVE METABOLIC PANEL [CHEM] Stat Lab 06/29/19 18:47 Ordered URINALYSIS W/POSS RFLX CULT [URINALYSIS] Stat Lab 06/29/19 18:41 Uncollected 0.9% Sodium Chloride Inj [Ns] 1,000 ml Med 06/29/19 18:41 Active IV 999 mls/hr Insulin Human Regular [Humulin R] Med 06/29/19 18:43 Discontinued 10 unit IV NOW ONE Spoke with Dr. Petesren, hospitalist. Will admit. Request insulin drip to be started. Glucose did get down to 440 with just 10 units, from a recorded 645 on CMP. Pt and his made aware of the plan to admit. Result Diagrams: 06/29/19 18:45 06/29/19 18:45 - EKG 1 Time of EKG reading by physician:: 19:38 EKG Read and Signed by:: Shahla Gomez EKG Interpretation (*Must complete 3 of following elements*): Abnormal Rate: 113 Rhythm: sinus tachycardia QRS: other (right atrial enlargement) NV Interval: normal ST Wave: normal - CONSULTS/PCP/HOSPITALIST Notification #1 *Consult/PCP/Hospitalist*: Dr. Petersen Time Discussed: 20:30 Consult Disposition: Admit Departure - Departure Date of Disposition Decision: 06/29/19 Time of Disposition Decision: 21:54 DIAGNOSIS: DKA (diabetic ketoacidoses) Qualifiers: Diabetes mellitus type: type 1 Diabetes mellitus complication detail: without coma Qualified Code(s): E10.10 - Type 1 diabetes mellitus with ketoacidosis w ithout coma Disposition: ADMITTED INPATIENT 09 Certified Medical Emergency: Emergent Condition: Fair Referrals and Follow-Ups: None,PCP [Primary Care Provider] - - Critical Care Note This patient required my direct & personal management of CC.: No Attestation - Physician/ RIYA Attestation Patient care was provided by Advanced Practice Provider:: No The physician spent face to face time with patient:: Yes Advanced Practice Provider documentation review:: Supervising physician onsite and consulted in the evaluation and care of this patient. The physician did have a face to face encounter with the patient.
[2019-06-29 19:05] LABS: BASO# 0.02 X1000 (0.0-0.2); BASO% 0.3 % (0.0-0.8); EOS# 0.01 X1000 (0.0-0.7); EOS% 0.1 % (0.0-10.0); HEMATOCRIT 42.6 % (42.0-52.0); HEMOGLOBIN 13.6 g/dL (14.0-18.0); LYMPH# 1.42 X1000 (1.2-3.4); MCH 30.8 PG (27-31); MCHC 31.9 g/dL (33-37); MCV 96.4 FL (81-99); MONO# 0.16 X1000 (0.11-0.59); MONO% 2.1 % (1.7-9.3); MPV 9.8 FL (7.4-10.4); NEUT# 5.87 X1000 (1.4-6.5); NEUT% 78.5 % (42.2-75.2); PLT 298 X1000 (130-400); RBC 4.42 XMIL (4.7-6.1); RDW 11.7 % (11.5-14.5); WBC 7.48 X1000 (4.8-10.8)
[2019-06-29 19:05] LABS: ALLEN TEST YES; BE -13.3 mmoll (-3.0-3.0); BLOOD TYPE ARTERIAL; HCO3-(ACT) 14.5 mmoll (20.0-26.0); O2(CT) 18.7 mL/dL (15.0-23.0); O2HB 95.9 % (95.0-99.0); PCO2(98.6) 27 mmHg (35-45); PO2(98.6) 100 mmHg (60-100); SAMPLE BLOOD; SAO2 95.9 % (95.0-100.0); THB 13.8 g/dL (11.5-17.4); pH(98.6) 7.26 (7.35-7.45)
[2019-06-29 19:06] LABS: MODALITY ROOM AIR
[2019-06-29 19:47] LABS: AGAP 23; ALB/GLOB RATIO 1.2; ALBUMIN 4.1 g/dL (3.5-5.0); ALKALINE PHOSPHATASE 114 U/L (32-122); BUN 21 mg/dL (8-22); CHLORIDE 93 mmol/L (98-107); COSMO 294; CREATININE 1.3 mg/dL (0.7-1.2); ESTIMATED GFR > 60; GLUCOSE 645 mg/dL (70-104); GOT 27 U/L (10-34); GPT 20 U/L (10-44); POTASSIUM 5.8 mmol/L (3.5-5.1); SODIUM 130 mmol/L (136-145); TCO2 14 mmol/L (25-35); TOTAL BILIRUBIN 0.55 mg/dL (0.20-1.00); TOTAL PROTEIN 7.5 g/dL (6.3-8.3)
[2019-06-29 19:48] LABS: PHOSPHORUS 3.3 mg/dL (2.7-4.5)
[2019-06-29] MEDS ORDERED: KAYEXALATE PO ONE ×2 (19:49→20:19)
[2019-06-29 19:51] LABS: CK PROFILE 424 U/L (24-204)
[2019-06-29 19:53] LABS: ACETONE SERUM SMALL (NEGATIVE)
--- NOTE | 2019-06-29 20:00 | EKG Report ---
Test Performed on : 06/29/2019 7:29:48 PM Test Reason : Hyperglycemia protocol Blood Pressure : / mmHG Vent. Rate : 113 BPM Atrial Rate : 113 BPM P-R Int : 134 ms QRS Dur : 080 ms QT Int : 348 ms P-R-T Axes : 048 000 052 degrees QTc Int : 477 ms Sinus tachycardia. Right atrial enlargement Cannot rule out Inferior infarct , age undetermined Abnormal ECG When compared with ECG of 15-APR-2019 06:15, (Unconfirmed) Minimal criteria for Inferior infarct are now present Unconfirmed Result
[2019-06-29 20:01] LABS: URINE SOURCE CLEAN CATCH
[2019-06-29 20:06] LABS: BILIRUBIN URINE NEGATIVE (NEGATIVE); BLOOD URINE NEGATIVE (NEGATIVE); COLOR STRAW; GLUCOSE URINE >1000 mg/dL (NEGATIVE); KETONE URINE 150 mg/dL (NEGATIVE); LEUKOCYTES URINE NEGATIVE (NEGATIVE); NITRITE URINE NEGATIVE (NEGATIVE); PH URINE 5.5; PROTEIN URINE NEGATIVE (NEGATIVE); SP GRAVITY URINE 1.024; TURBIDITY URINE CLEAR (CLEAR); UROBILINOGEN URINE NORMAL (NORMAL)
[2019-06-29 20:08] LABS: UR EPITHELIAL CELLS <10 /HPF (<10); URINE BACTERIA NEGATIVE /HPF; URINE RBC <10 /HPF (<10); URINE WBC <10 /HPF (<10)
[2019-06-29 20:17] LABS: CK INDEX 1.4 (0.0-2.5); CK-MB 5.75 ng/mL (0.0-5.0)
[2019-06-29] MEDS ORDERED: SODIUM BICARBONATE 8.4% 100 MEQ in STERILE WATER INJ. 500 ML IV PRN (21:15)
[2019-06-29] MEDS ORDERED: SODIUM PHOSPHATE 30 MMOL in D5W 250 ML IV PRN (21:15)
[2019-06-29] MEDS ORDERED: MAGNESIUM SULFATE 2 GM/S.W.I. 2 GM/50 ML IVPB IV PRN (21:15)
[2019-06-29] MEDS ORDERED: POTASSIUM CHLORIDE 20 MEQ/SWI 20 MEQ/100 ML IVPB IV PRN (21:15)
[2019-06-29] MEDS ORDERED: D50W SYRINGE IV PRN ×2 (21:15→22:32)
[2019-06-29] MEDS ORDERED: HUMULIN R 100 UNIT in NS 100 ML IV SCH ×2 (21:15→22:32)
[2019-06-29] MEDS ORDERED: POTASSIUM CHLORIDE 20% LIQUID PO PRN (21:15)
[2019-06-29] MEDS ORDERED: POTASSIUM CHLORIDE 10% LIQUID PO PRN (21:15)
[2019-06-29] MEDS ORDERED: POTASSIUM CHLORIDE 40 MEQ/SWI 40 MEQ/100 ML IVPB IV PRN (21:15)
[2019-06-29] MEDS ORDERED: MAGNESIUM SULFATE 2 GM/S.W.I. 50 ML IV PRN (22:32)
[2019-06-29] MEDS ORDERED: ZOFRAN IV PRN (22:32)
[2019-06-29 23:11] LABS: CREATININE 1.5 mg/dL (0.7-1.2); MAGNESIUM 2.2 mg/dL (1.5-2.7); PHOSPHORUS 2.4 mg/dL (2.7-4.5); POTASSIUM 5.5 mmol/L (3.5-5.1)
--- NOTE | 2019-06-30 01:43 | HISTORY AND PHYSICAL ---
PRIMARY CARE PHYSICIAN: Unknown. CHIEF COMPLAINT: Nausea and not feeling well. HISTORY OF PRESENTING ILLNESS: A 49-year-old male with a history of diabetes mellitus type 1 and frequent ketoacidosis who had presented to emergency department complaining of being nauseated. He states that he was taking his insulin as he is supposed to but his blood sugar was still around 600 ranges. He was evaluated in the emergency department and it was confirmed that his blood glucose was elevated to around 645. He was given IV insulin and it was suspected he was in early DKA again. Subsequently, he will require admission for further management. At the time of my examination, patient denied any headache, fever, chills, chest pain, shortness of breath or any weight changes. Just stated he felt nauseated. PAST MEDICAL HISTORY: Include diabetes mellitus type 1, frequent DKA, hypertension. PAST SURGICAL HISTORY: Left foot surgery. ALLERGIES: No known drug allergies. CURRENT MEDICATIONS: He does not recall and nursing staff will reconcile. SOCIAL HISTORY: No history of smoking, alcohol or illicit drug use. FAMILY HISTORY: No history of coronary artery disease. REVIEW OF SYSTEMS: Fourteen point review of systems as listed in HPI. Other systems negative. PHYSICAL EXAMINATION: GENERAL: Cooperative, friendly male. He is resting comfortably now. VITAL SIGNS: Temperature 97.5 degrees, pulse 125, respiration 19, blood pressure 154/94. HEENT: Atraumatic, normocephalic. Extraocular movements intact. PERRLA. NECK: Supple. CHEST: Clear to auscultation. CARDIOVASCULAR: Regular rate and rhythm. ABDOMEN: Soft. Positive bowel sounds. EXTREMITIES: No edema. NEUROLOGIC: He is awake, alert, oriented x3. GENITOURINARY: No bladder distention. SKIN: Warm. LABORATORIES AND STUDIES: Sodium 130, potassium 5.8, chloride 93, CO2 is 14, BUN is 21, creatinine is 1.3, glucose is 645. WBC 7.48, hemoglobin 13.6, hematocrit 42.6, platelets 298,000. Urine shows ketones. ASSESSMENT: A 49-year-old male with a history of diabetes mellitus type 1 and frequent diabetic ketoacidosis who had presented to the emergency department complaining of nausea and elevated blood glucose. He was evaluated in the emergency department and it was suspected he was in early DKA. Subsequently, he will require admission for further management. 1. Early diabetic ketoacidosis. 2. Hypertension. PLAN: 1. We will admit patient to ICU. 2. Put patient on insulin drip per DKA protocol. 3. Continue with IV fluids. 4. We will give antiemetics as needed. 5. Monitor blood pressure closely and resume antihypertensive agent. 6. We will put patient on DVT prophylaxis with SCDs. 7. We will continue to follow, and reassess and make further recommendation based on patient's clinical course. cc: Ethan Petersen MD MTDSrini
[2019-06-30] MEDS ORDERED: TYLENOL PR PRN (02:15)
[2019-06-30] MEDS ORDERED: TYLENOL PO PRN (02:15)
[2019-06-30] MEDS: NS 1,000 ML IV SCH ×5 (02:30→17:12)
[2019-06-30] MEDS: D5 NS 1,000 ML IV SCH ×2 (02:45→05:21)
[2019-06-30 03:14] LABS: AGAP 16; BUN 17 mg/dL (8-22); CHLORIDE 102 mmol/L (98-107); COSMO 281; CREATININE 1.4 mg/dL (0.7-1.2); ESTIMATED GFR > 60; GLUCOSE 198 mg/dL (70-104); MAGNESIUM 2.2 mg/dL (1.5-2.7); PHOSPHORUS 2.1 mg/dL (2.7-4.5); POTASSIUM 4.8 mmol/L (3.5-5.1); SODIUM 137 mmol/L (136-145); TCO2 19 mmol/L (25-35)
[2019-06-30 07:26] LABS: AGAP 9; BUN 14 mg/dL (8-22); CALCIUM 7.5 mg/dL (8.8-10.2); CHLORIDE 104 mmol/L (98-107); COSMO 274; CREATININE 1.1 mg/dL (0.7-1.2); ESTIMATED GFR > 60; GLUCOSE 168 mg/dL (70-104); MAGNESIUM 2.1 mg/dL (1.5-2.7); PHOSPHORUS 2.3 mg/dL (2.7-4.5); POTASSIUM 4.2 mmol/L (3.5-5.1); SODIUM 135 mmol/L (136-145); TCO2 22 mmol/L (25-35)
[2019-06-30] MEDS: HUMALOG SUBQ SCH ×4 (08:11→20:37)
--- NOTE | 2019-06-30 08:29 | PROGRESS NOTE ---
DATE: 06/30/2019 Mr. Murcia presented yesterday with nausea, not feeling good. Has no primary care physician. A 49-year-old with history of diabetes mellitus type 1, frequent ketoacidosis. Presented to the emergency department complaining of being nauseated. States that he was taking his insulin that he was supposed to. His blood sugar was still round 500 to 600 range. Evaluated in the emergency department. Confirmed that his blood glucose is elevated at 645. Given some IV insulin. Suspected early DKA. His blood work when he came in, sodium 134, potassium 5.5, chloride 101, BUN 21, and creatinine 1.5. Blood sugar 469, 482, 478. His anion gap was 19. This morning, his bicarb has come up to 22, blood sugars come down into the 100s, so we will put him on a diabetic diet and put him back on his Lantus 20 units twice a day and see if we can get him on a more stable pattern of 70/30 twice a day. I think he was taking Humulin regular 20 units twice a day. cc: Larry Boateng MD
[2019-06-30] MEDS: LANTUS INSULIN SUBQ SCH ×2 (08:44→20:37)
[2019-06-30 11:17] LABS: AGAP 12; BUN 12 mg/dL (8-22); CALCIUM 7.3 mg/dL (8.8-10.2); CHLORIDE 102 mmol/L (98-107); COSMO 273; CREATININE 1.1 mg/dL (0.7-1.2); ESTIMATED GFR > 60; GLUCOSE 192 mg/dL (70-104); MAGNESIUM 1.9 mg/dL (1.5-2.7); PHOSPHORUS 1.9 mg/dL (2.7-4.5); SODIUM 134 mmol/L (136-145); TCO2 20 mmol/L (25-35)
[2019-07-01] MEDS: HUMALOG SUBQ SCH ×5 (05:08→20:35)
[2019-07-01] MEDS: NS 1,000 ML IV SCH ×3 (05:09→12:20)
[2019-07-01 07:02] LABS: AGAP 7; ALB/GLOB RATIO 1.3; ALBUMIN 3.2 g/dL (3.5-5.0); ALKALINE PHOSPHATASE 93 U/L (32-122); BUN 11 mg/dL (8-22); CALCIUM 7.8 mg/dL (8.8-10.2); CHLORIDE 104 mmol/L (98-107); COSMO 270; CREATININE 0.9 mg/dL (0.7-1.2); ESTIMATED GFR > 60; GLUCOSE 112 mg/dL (70-104); GOT 18 U/L (10-34); GPT 15 U/L (10-44); POTASSIUM 3.8 mmol/L (3.5-5.1); SODIUM 135 mmol/L (136-145); TCO2 24 mmol/L (25-35); TOTAL BILIRUBIN 0.18 mg/dL (0.20-1.00); TOTAL PROTEIN 5.7 g/dL (6.3-8.3)
[2019-07-01] MEDS: PROTONIX PO SCH (10:04)
[2019-07-01] MEDS: LANTUS INSULIN SUBQ SCH ×2 (10:04→20:34)
--- NOTE | 2019-07-01 16:14 | PROGRESS NOTE ---
DATE: 07/01/2019 Mr. Murcia is feeling better. Says still has aching in his legs. He is eating, food is staying down. No abdominal pain. He remains afebrile, temperature 98.1 degrees, pulse 76, respirations 20, blood pressure 139/93. Pupils are equal, round.Lungs: Are clear in all lung deshpande. Cardiovascular: Regular rate without murmur or S3. Abdomen: Soft. Skin: Warm and dry. ASSESSMENT AND PLAN: He presented with earlier mild diabetic ketoacidosis. This appears to have corrected. He is eating, receiving insulin. His sugar appears under good control. He wanted to try go home in the morning so I will stop his IV pain medicine and actually looking over I do not see anything right now. He is getting normal saline 100 mL an hour. He should be ready to go home in the morning. cc: Larry Boateng MD
[2019-07-01] MEDS ORDERED: TUMS PO PRN (16:21)
[2019-07-02] MEDS: PROTONIX PO SCH (06:40)
[2019-07-02] MEDS: HUMALOG SUBQ SCH ×3 (06:45→16:37)
[2019-07-02] MEDS: LANTUS INSULIN SUBQ SCH (08:54)
[2019-07-02 11:01] VITALS: BP 146/89
[2019-07-02] MEDS ORDERED: REGLAN IV ONE (13:30)
[2019-07-02] MEDS ORDERED: FLU VACCINE IM ONE (13:59)
[2019-07-02] MEDS ORDERED: PNEUMOVAX 23 IM ONE (13:59)
--- NOTE | 2019-07-02 14:05 | DISCHARGE SUMMARY ---
ADMISSION DATE: 06/29/2019 DISCHARGE DATE: 07/02/2019 DISCHARGE DIAGNOSES: 1. Diabetic ketoacidosis. 2. Poor compliance. Briefly, the patient was admitted on the for elevated blood sugar, nausea. His blood sugar was 645. He was placed on IV insulin. I think by the , he was transitioned to Lantus twice a day. Reportedly, he was taking other insulin 70/30. It is unclear exactly what he was taking at home. As he has [employer], he has been placed on Lantus 20 b.i.d. here. I am just going to leave him on the 30 daily and then he is on Humalog 20 t.i.d. with meals and follow up with his primary care physician. His gap is closed. His last bicarb was 24, that was yesterday, a gap of 7. He initially presented with pH 7.26, and his gap was 23 with a bicarbonate of 14, so we advised on compliance with his medications as he would need to take a long-acting and short- acting. He has been on 20 b.i.d., so I have put him on 30 units daily with his 20 t.i.d. of with meals. Discharge condition is stable. FOLLOWUP: He has seen Dr. Smalls before, next 1 to 2 weeks stay hydrated. This is a 32 minute discharge. cc: Dann Cervantes MD
== END 2019-07-02 17:00 | disposition home or self-care (01) | DRG 639 ==
LOC: ED 18:23 → SUATTDRO 18:24 → 2N 18:24
PROVIDERS: ATTEND Internal Medicine